=== PATIENT | female | born 1960 | race Caucasian/White ===

== ENCOUNTER 2019-08-29 08:51 | Day surgery (SDC) | payer OTHER ==
[2019-08-28 12:01] VITALS: BMI 21.4
[2019-08-29] MEDS ORDERED: PROPOFOL 20 ML ONE (11:19)
[2019-08-29] MEDS ORDERED: fentaNYL CITRATE 250 MCG/5 ML VIAL ONE (11:19)
[2019-08-29] MEDS ORDERED: DEXAMETHASONE SOD PHOSPHATE 4 MG/1 ML VIAL ONE ×2 (11:19→11:55)
[2019-08-29] MEDS ORDERED: LIDOCAINE HCL/PF 2% SDV 5ML VIAL ONE (11:19)
[2019-08-29] MEDS ORDERED: KETOROLAC TROMETHAMINE 30 MG/1 ML VIAL ONE (11:19)
[2019-08-29] MEDS ORDERED: ROCURONIUM BROMIDE 50 MG/5 ML SYRINGE ONE (11:20)
[2019-08-29] MEDS ORDERED: COCAINE HCL 4% TOPICAL SOLUTION 4 ML BOTTLE TP ONE ×2 (11:21→11:40)
[2019-08-29] MEDS ORDERED: LIDOCAINE 1%-EPI 1:100,000 30 ML MDV IJ ONE ×2 (11:25→12:02)
[2019-08-29] MEDS ORDERED: LIDOCAINE 1%/EPI 1:100000 (20 ML MULTI DOSE VIAL) IJ ONE ×3 (11:40)
[2019-08-29] MEDS ORDERED: LABETALOL HCL 5 MG/1 ML (100MG/20 ML VIAL) ONE (12:23)
[2019-08-29] MEDS ORDERED: BACITRACIN 15 GM TUBE TOPICAL OINTMENT ONE (13:57)
[2019-08-29] MEDS ORDERED: GLYCOPYRROLATE 0.2 MG/1 ML VIAL ONE (14:02)
[2019-08-29] MEDS ORDERED: NEOSTIGMINE METHYLSULFATE 0.5 MG/ML - 10 ML MDV ONE (14:02)
[2019-08-29] MEDS ORDERED: oxyCODONE HCL 5 MG TABLET PO PRN (14:21)
[2019-08-29] MEDS ORDERED: ONDANSETRON 4 MG/2 ML VIAL IVPUSH PRN (14:21)
[2019-08-29] MEDS ORDERED: PROMETHAZINE HCL 25 MG/1 ML VIAL IVPB PRN (14:21)
--- NOTE | 2019-08-29 14:40 | OP ---
Operative Note - Note: Operative Date: 08/29/19 Pre-Operative Diagnosis: Chronic sinusitis. Deviated septum Operation: Endoscopic right sphenoidotomy and biopsy, and bilateral maxillary antrostomy. Septoplasty Findings: yellowish mass in right sphenoid sinus Post-Operative Diagnosis: Same as Pre-op Surgeon: Paras Kimball Anesthesiologist/BLENDING SUPERVISOR: Yash Hilton Anesthesia: General Specimens Removed: right sphenoid biopsy, left sinus contents, septum Estimated Blood Loss (mls): 200 Fluid Volume Replaced (mls): 1,000 Operative Report Dictated: Yes
--- NOTE | 2019-08-29 16:32 | OP ---
DATE OF OPERATION: 08/29/2019 LOCATION: [facility] PREOPERATIVE DIAGNOSIS: Chronic sinusitis and deviated septum. POSTOPERATIVE DIAGNOSIS: Chronic sinusitis and deviated septum. PROCEDURES: Right endoscopic sphenoidotomy with biopsy, bilateral endoscopic maxillary antrostomy, and septoplasty. SURGEON: Paras Kimball MD ANESTHESIA: General endotracheal by Dr. Yash Hilton INDICATIONS: The patient is a 59-year-old woman with chronic sinusitis refractory to maximal medical management and previous conservative surgical treatment who has on examination a deviated septum on the right side and on CT scan soft tissue swelling in the right sphenoid sinus as well as in the bilateral maxillary sinuses. The nature and purpose of the proposed procedure as well as the risks, benefits, alternatives, and possible complications were discussed in detail with the patient who appears to understand and wishes to proceed with surgery. All questions were answered, and informed consent was given by the patient. DESCRIPTION OF PROCEDURE: After induction of general endotracheal anesthesia, with the patient in the supine position and the back slightly raised, she was prepped and draped in the usual sterile fashion. The nose was decongested with topical 4% cocaine on pledgets after injecting a total of 10 mL 1% lidocaine with epinephrine 1:100,000 in the nasal tissues. After several minutes, the pledgets were removed. An endoscopic examination confirmed the presence of a right-sided deviated septum, an adhesion between the left middle turbinate and uncinate process, and diffusely edematous nasal mucosa. The septum was addressed first. A left-sided Toney incision was made, and a left mucosal flap was elevated intact. An oblique incision was made on the septal cartilage and then through this a right-sided mucoperichondrial flap was raised with a perforation in the inferior portion inadvertently. Moderate bleeding was encountered diffusely. The septum was packed with Surgicel for several minutes to control the bleeding. After removal of the Surgicel, the deflected portions of septal bone and cartilage were sharply resected. This afforded access into the posterior right sinus drainage passages. Under endoscopic guidance, the right sphenoid ostium was identified in its usual location between the superior turbinate and nasal septum. This was cannulated with a small, straight suction catheter and then was steadily dilated by means of slightly larger catheters until a 10-Gabonese suction catheter could be placed without difficulty. A sphenoid punch was then used to open up the bony aperture inferiorly and superiorly and then finally a 30-degree endoscope was able to be introduced into the sinus whereupon a yellow-tinged mass based posteroinferiorly could be identified. Due to the possibility that the mass could be a sign of inflammatory or neoplastic disease, a small tissue sample of the mass was taken with biopsy forceps. The bilateral maxillary sinuses were next addressed. The left-sided adhesion was divided sharply and then a retrograde uncinectomy was performed with identification of the maxillary sinus ostium, which was then opened in a posterior and inferior direction. There was no visible disease within the sinus cavity. On the right side, a retrograde uncinectomy was also performed followed by cannulation of the sinus ostium. The septum was then closed with 4-0 chromic suture at the [place] incision and then quilted with the same, and then septal juan diego were also applied. Stammberger Sinu-Foam was used in the right superior meatus and the bilateral middle meati followed by NasoPore dressing in the middle meati and against the septum. A nasal tip dressing was then placed and when the patient awakened, she was extubated and discharged to the recovery room in satisfactory condition. The estimated blood loss was 200 mL. Fluid replacement was 1000 mL. There were no complications. The specimens sent to Pathology were the right sphenoid biopsy, the left sinus contents, and septum bone and cartilage fragments. PARAS KIMBALL M.D. [id number] MTDD
[2019-08-29 16:36] VITALS: TEMP 97.4
[2019-08-29 17:48] VITALS: BP 132/78; PULSE 81
--- NOTE | 2019-09-03 19:40 | PATH ---
Surgical Pathology Report Patient Name: LOU AMIN [facility]. Rec. #: [id number] /Age/Gender: 1960 (Age: 59) / F Account: [id number] Location: [facility] Taken: 08/29/2019 Received: 09/01/2019 Reported: 09/03/2019 Physicians: Paras Kimball Specimen(s) Received A: NASAL SEPTUM B: LEFT SINUS CONTENTS C: RIGHT SPHENOID SINUS Clinical History Chronic sinusitis, deviated nasal septum Final Diagnosis A. NASAL SEPTUM, EXCISION: BONE AND CARTILAGE, CONSISTENT WITH NASAL SEPTUM. B. LEFT SINUS CONTENTS, EXCISION: CHRONIC SINUSITIS. C. RIGHT SPHENOID SINUS BIOPSY: PORTION OF FIBROUS TISSUE AND SCANT DETACHED BENIGN RESPIRATORY EPITHELIUM SHOWING MILD CHRONIC INFLAMMATION. NO HISTOLOGIC EVIDENCE OF GRANULOMATOUS INFLAMMATION. Electronically Signed Romaine Telles M.D. Gross Description A. Received in formalin labeled "nasal septum," is a 2.9 x 2.7 x 0.3 cm aggregate of multiple gonzáles portions of bone and cartilage. A sales representative groceries portion is submitted in one cassette, following decalcification. B. Received in formalin labeled "left nasal contents," is a 1.9 x 1.3 x 0.2 cm aggregate of gonzáles fragments cartilage and possible bone as well as soft tissue. The specimen is submitted in toto in one cassette, following decalcification. C. Received in formalin labeled "right sphenoid sinus biopsy," is a 0.5 cm in greatest dimension gonzáles brown soft tissue fragment. The specimen is submitted in toto in one cassette. 09/01/2019 saudi09/01/2019
== END 2019-08-29 17:48 | disposition home or self-care (01) ==
LOC: JASU-SURG 08:51
PROVIDERS: ATTEND Otolaryngology
PROC: 09BM8ZZ Excision of Nasal Septum, Via Natural or Artificial Opening Endoscopic (ICD-10-PCS; 2019-08-29)
PROC: 09CW8ZZ Extirpation of Matter from Right Sphenoid Sinus, Via Natural or Artificial Opening Endoscopic (ICD-10-PCS; principal; 2019-08-29 10:30)
DX: J32.8 Other chronic sinusitis (principal); J34.2 Deviated nasal septum
CPT/HCPCS: 88302-TC; 88304-TC; 88305-TC; 88311-TC; 94760